=== PATIENT | male | born 1980 | race Caucasian/White ===

== ENCOUNTER 2022-10-25 19:14 | Emergency (ER) | payer SELFPAY ==
[~2022-10-25] VITALS: Ht 170.2 cm; Wt 80.3 kg
--- NOTE | 2022-10-25 19:36 | NUR ---
PATIENT PRESENTS WITH SOB AND CHEST PAIN X 1 DAY, WAS SEEN AT [facility] WITH THE DIAGNOSIS OF HYPERTENTION AND PRESCRIBED A ANTIHYPERTENSIVE MEDICATION, PATIENT COMPLAINTS OF 9/10 PAIN AND NOTED GRASPING AT LEFT SIDE OF CHEST, PATIENT BROUGHT TO ED BED 4
--- NOTE | 2022-10-25 19:37 | NUR ---
REPORT GIVEN TO AUBREY ARCHULETA AT [facility]
[2022-10-25 19:38] VITALS: BP_SYST 158; PULSE 97; RESP 27; TEMP 98.6; O2SAT 99
--- NOTE | 2022-10-25 19:40 | NUR ---
PATIENT RESTING IN BED WITH FRIEND BEDSIDE
--- NOTE | 2022-10-25 19:41 | NUR ---
ER at bedside examining patient.
[2022-10-25] MEDS ORDERED: LORazepam 2 MG/ML VIAL IVP ONE ×2 (19:45→20:00)
[2022-10-25] MEDS ORDERED: iohexoL 350 mgI/mL, 100 ML INFUS..BTL IV ONE (19:56)
[2022-10-25 20:09] LABS: HEMATOCRIT 44.5 % (36-54); HEMOGLOBIN 15.5 g/dL (14.0-18.0); MEAN CORPUSCULAR HEMOGLOBIN 31 pg (27-31); MEAN CORPUSCULAR HGB CONC 35 % (32-36); MEAN CORPUSCULAR VOLUME 89 fL (79.0-98.0); PLATELET COUNT (AUTO) 156 K/uL (130-430); RED CELL DISTRIBUTION WIDTH 13.6 % (9.0-15.0); WHITE BLOOD COUNT (AUTO) 8.7 K/uL (4.8-10.8)
[2022-10-25 20:18] LABS: ALANINE AMINOTRANSFERASE 51 U/L (12-78); ANION GAP 14 (5-15); ASPARTATE AMINOTRANSFERASE 117 U/L (10-37); CALCIUM 8.2 mg/dL (8.4-11.0); CHLORIDE 100 mmol/L (98-107); CREATININE 0.78 mg/dL (0.55-1.30); GFR AFRICAN AMERICAN 142 mL/min (>90); GLUCOSE 152 mg/dL (74-106); TOTAL BILIRUBIN 1.2 mg/dL (0.0-1.0); UREA NITROGEN, BLOOD 8 mg/dL (8-21)
[2022-10-25] MEDS ORDERED: POTASSIUM CHLORIDE 20 MEQ TAB.PRT.SR PO ONE (20:45)
[2022-10-25] MEDS ORDERED: NACL 0.9% 1,000 ML IV ONE (20:45)
--- NOTE | 2022-10-25 20:50 | NUR ---
PT RETURNED FROM CT RESTING COMFORTABLY IN BED WITH FRIEND BEDSIDE VSS RAILS UP
[2022-10-25 21:14] LABS: ATYPICAL LYMPHOCYTES % 0 % (0-0); BAND % (MANUAL) 0 % (0-6); BASOPHILS % (MANUAL) 0 % (0-2); EOSINOPHILS % (MANUAL) 1 % (0-7); LYMPHOCYTES % (MANUAL) 55 % (20-46); MONOCYTES % (MANUAL) 2 % (0-11)
[2022-10-25] MEDS ORDERED: HYDR-3698 PO (21:23)
[2022-10-25 21:36] VITALS: BP_SYST 159; PULSE 90; RESP 27; TEMP 98.6; O2SAT 95
--- NOTE | 2022-10-25 21:43 | NUR ---
DPatient given written and verbal discharge instructions and verbalizes understanding. ER MD discussed with patient the results and treatment provided. Patient in stable condition. ID arm band removed. IV catheter removed intact and dressing applied, no active bleeding. Rx of VISTARIL/ATARAX given. Patient educated on NONSPECIFIC CHEST PAIN and to follow up with PMD. Pain Scale . Opportunity for questions provided and answered. Medication side effect fact sheet provided.
[2022-10-26] MEDS ORDERED: LISI20TA30 PO (14:03)
== END 2022-10-25 21:36 | disposition home or self-care (01) ==
LOC: SED 19:14
DX: R07.9 Chest pain, unspecified (principal); R06.02 Shortness of breath; I10 Essential (primary) hypertension; Z79.899 Other long term (current) drug therapy
CPT/HCPCS: 99285; 96374; 71275; 96361; 85027; 80053; 83880; 85007; 84484; 36415; 93005; 76376; Q9967; J2060; J7030

== ENCOUNTER 2022-10-26 11:13 | Emergency (ER) | payer SELFPAY ==
[~2022-10-26] VITALS: Ht 162.6 cm; Wt 63.5 kg
[~2022-10-26 11:13] MED LIST: HYDR-3698 PO
--- NOTE | 2022-10-26 11:28 | NUR ---
Placed in room 08 . Placed on monitoring coordinator, blood pressure machine and pulse oximeter. To gown for exam. Side rails up.
[2022-10-26 11:29] VITALS: BP_SYST 163; PULSE 83; RESP 22; TEMP 98.5; O2SAT 97
--- NOTE | 2022-10-26 11:30 | NUR ---
Pt brought by self, A&Ox4, pt presents to ER with bodyaches, N/V, weakness, pt states he has Hx of alcoholism, last drink 2 days ago, skin pink and warm, cap refill <3.
--- NOTE | 2022-10-26 12:07 | NUR ---
Dr Villafana evaluating patient at bedside
[2022-10-26] MEDS ORDERED: ENALAPRILAT DIHYDRATE 1.25 MG/ML VIAL IVP ONE (12:15)
[2022-10-26 12:31] LABS: BASOPHILS % (AUTO) 0.6 % (0.0-2.0); EOSINOPHILS % (AUTO) 0.6 % (0.0-4.0); HEMATOCRIT 40.5 % (36-54); HEMOGLOBIN 14.3 g/dL (14.0-18.0); LYMPHOCYTES # (AUTO) 1.4 K/uL (1.0-5.5); LYMPHOCYTES % (AUTO) 30.5 % (20.5-51.5); MEAN CORPUSCULAR HEMOGLOBIN 31 pg (27-31); MEAN CORPUSCULAR HGB CONC 35 % (32-36); MEAN CORPUSCULAR VOLUME 89 fL (79.0-98.0); MONOCYTES # (AUTO) 0.3 K/uL (0.0-1.0); MONOCYTES % (AUTO) 6.2 % (1.7-9.3); NEUTROPHILS # (AUTO) 2.7 K/uL (1.8-7.7); NEUTROPHILS % (AUTO) 62.1 % (40.0-70.0); PLATELET COUNT (AUTO) 122 K/uL (130-430); RED BLOOD CELL COUNT(AUTO) 4.56 MIL/uL (4.2-6.2); RED CELL DISTRIBUTION WIDTH 13.3 % (9.0-15.0); WHITE BLOOD COUNT (AUTO) 4.4 K/uL (4.8-10.8)
--- NOTE | 2022-10-26 13:15 | NUR ---
# 22 gauge angiocath placed to RFA. Use of asceptic technique. Opsite placed over site. Blood return noted. Blood for lab drawn from site. Flushed with 10 cc of normal saline. No evidence of infiltration noted. Patient tolerated well.
[2022-10-26 13:22] LABS: CALCIUM 8.1 mg/dL (8.4-11.0); CREATININE 0.61 mg/dL (0.55-1.30)
[2022-10-26 13:27] LABS: ALBUMIN 3.7 g/dL (3.4-4.8); TOTAL BILIRUBIN 1.3 mg/dL (0.0-1.0)
[2022-10-26 13:33] LABS: ALCOHOL, BLOOD 100 mg/dL (<10)
[2022-10-26] MEDS ORDERED: LISI20TA30 PO (14:03)
--- NOTE | 2022-10-26 14:08 | NUR ---
Patient given written and verbal discharge instructions and verbalizes understanding. ER MD discussed with patient the results and treatment provided. Patient in stable condition. ID arm band removed. Rx of Lisinopril given. Patient educated on pain management and to follow up with PMD. Pain Scale 3/10. Opportunity for questions provided and answered. Medication side effect fact sheet provided.
[2022-10-26 14:10] VITALS: BP_SYST 146; PULSE 86; RESP 18; TEMP 98.1; O2SAT 93
== END 2022-10-26 14:08 | disposition home or self-care (01) ==
LOC: SED 11:13
DX: I10 Essential (primary) hypertension (principal); F10.20 Alcohol dependence, uncomplicated; R07.9 Chest pain, unspecified; R06.02 Shortness of breath; Z79.899 Other long term (current) drug therapy; Y90.6 Blood alcohol level of 120-199 mg/100 ml
CPT/HCPCS: 99284; 96374; 71045; 80053; 82140; 83880; 85025; 85379; 84484; 36415; G0482